=== PATIENT | female | born 1970 | race Caucasian/White ===

== ENCOUNTER 2017-12-09 09:26 | Outpatient (CLI) | payer MEDICAID | END 2017-12-09 09:27 | disposition critical access hospital (66) | LOC: EMS 09:26 | PROVIDERS: ATTEND Surgery | DX: R10.32 Left lower quadrant pain (principal); M54.5 Low back pain | CPT/HCPCS: A0425; A0427; A0999 ==

== ENCOUNTER 2017-12-09 09:50 | Emergency (ER) | payer MEDICAID ==
[2017-12-09] MEDS ORDERED: SODIUM CHLORIDE 0.9% 1,000 ML IV ONE (09:53)
[2017-12-09] MEDS ORDERED: KETOROLAC 60 MG/2 ML VIAL IVP STA (09:53)
--- NOTE | 2017-12-09 09:56 | ED Physician Documentation ---
History of Present Illness - Stated complaint Stated Complaint: LLQ PX - Additonal information Additional information: hx from pt 47 f visiting locally from [place] pmhx cushings s/p pituitary removal pshx abd - lesley developed L flank pain yesterday, awoke this AM worse and rad to LLQ NV no fever no hematuria Review of Systems Constitutional: denies: Fever Cardiac: denies: Chest pain / pressure Respiratory: denies: Dyspnea GI: reports: Abdominal Pain (LLQ) : denies: Hematuria, Now EGA (denies) Musculoskeletal: reports: Back pain Endocrine: denies: Easy bruising / bleeding Immunocompromised: denies: Immunocompromised PD PAST MEDICAL HISTORY - Present Medications Home Medications: Ambulatory Orders Medication Instructions Recorded Confirmed Cephalexin [Keflex] 500 mg PO Q6H #40 capsule 12/09/17 Ibuprofen [Motrin] 400 mg PO Q6H PRN #30 tablet 12/09/17 oxyCODONE [Roxicodone] 5 mg PO Q6H PRN #10 tablet 12/09/17 - Allergies Allergies/Adverse Reactions: Allergies Allergy/AdvReac Type Severity Reaction Status Date / Time acetaminophen Allergy Anaphylaxis Verified 12/09/17 10:05 [From Darvocet-N] propoxyphene Allergy Anaphylaxis Verified 12/09/17 10:05 [From Darvocet-N] PD ED PE NORMAL - Vitals Vital signs reviewed: Yes - Neck Neck: Supple, no meningeal sign - Cardiac Cardiac: RRR - Respiratory Respiratory: No respiratory distress, Clear bilaterally - Abdomen Abdomen: Soft, Other (TTP LLQ no peritoneal) - Back Back: No: No CVA TTP (+ L CVA TTP) - Derm Derm: Normal color - Neuro Neuro: Alert and oriented X 3 Results - Vitals Vitals: Vital Signs - 24 hr 12/09/17 12/09/17 12/09/17 10:01 10:55 13:26 Temperature 35.6 C L Heart Rate 83 67 64 Respiratory 16 20 20 Rate Blood Pressure 121/93 H 134/94 H 134/114 H O2 Saturation 98 100 100 Oxygen O2 Source Room air - Labs Labs: Laboratory Tests 12/09/17 12/09/17 12/09/17 10:05 10:05 11:13 WBC 8.3 RBC 4.40 Hgb 15.1 Hct 42.5 MCV 96.5 MCH 34.2 H MCHC 35.5 RDW 12.5 Plt Count 189 MPV 9.0 Neut # (Auto) 3.3 Lymph # (Auto) 4.1 H [place] # (Auto) 0.6 Eos # (Auto) 0.3 Baso # (Auto) 0.1 Absolute Nucleated RBC 0.01 Nucleated RBC % 0.1 Sodium 138 Potassium 3.4 L Chloride 105 Carbon Dioxide 23 Anion Gap 10.0 BUN 12 Creatinine 0.8 Estimated GFR (MDRD) 76 L Glucose 129 H Calcium 9.5 Total Bilirubin 1.2 H AST 76 H ALT 80 H Alkaline Phosphatase 85 Total Protein 8.0 Albumin 4.6 Globulin 3.4 Albumin/Globulin Ratio 1.4 Lipase 29 Urine Color YELLOW Urine Clarity CLEAR Urine pH 5.5 Ur Specific [place] 1.025 Urine Protein NEGATIVE Urine Glucose (UA) NEGATIVE Urine Ketones NEGATIVE Urine Occult Blood NEGATIVE Urine Nitrite NEGATIVE Urine Bilirubin NEGATIVE Urine Urobilinogen 0.2 (NORMAL) Ur Leukocyte Esterase MODERATE H Urine RBC 0-5 Urine WBC 11-25 H Ur Squamous Epith Cells FEW Squamous Urine Bacteria Few Urine Casts 0-2 Hyaline Casts Urine Mucus Few Strands Ur Microscopic Review INDICATED Urine Culture Comments INDICATED Urine HCG, Qual NEGATIVE - Rads (name of study) CT AP stone study Radiology: See rad report (no acute process no kindye/ureteral stone, fatty liver, fibroids) PD MEDICAL DECISION MAKING - ED course ED course: pt pain is severe and colicky so suspected stone but CT neg for stone looks like pyelo will give rocephin and dc on keflex and pain / nausea meds MSE performed infection identified - pyelo no life limb vision threatening infection or injury identified feel pt stable and safe for dc - Sepsis Event Vital Signs: Vital Signs - 24 hr 12/09/17 12/09/17 12/09/17 10:01 10:55 13:26 Temperature 35.6 C L Heart Rate 83 67 64 Respiratory 16 20 20 Rate Blood Pressure 121/93 H 134/94 H 134/114 H O2 Saturation 98 100 100 Oxygen O2 Source Room air Departure - Departure Disposition: 01 Home, Self Care Clinical Impression: Pyelonephritis Condition: Good Instructions: ED Kidney Infec Female Prescriptions: Cephalexin [Keflex] 500 mg PO Q6H #40 capsule Ibuprofen [Motrin] 400 mg PO Q6H PRN #30 tablet PRN Reason: Pain oxyCODONE [Roxicodone] 5 mg PO Q6H PRN #10 tablet PRN Reason: Severe Pain Comments: The CT does not show a kidney stone It looks like the pain is due to a kidney infection. We gave you IV antibiotics as well and pain medications and fluids in the ER At this time, the infection can be managed as an outpatient. Take the antibiotics as prescribed Take motrin and for mild to moderate pain Only take the oxycodone (which is a narcotic) if absolutely necessary for severe pain not relieved by motrin Your labs also were notable for some elevated liver tests and the CT scan showed a fatty liver - you should follow up with your PMD about these findings - and avoid tylenol and alcohol both of which can worsen liver problems And the radiologist noted that you have fibroid in your uterus - this is not related to your symptoms today, is likely not a new thing, does not need any treatment right now - but follow up with your [employer] when you get home to [place] Discharge Date/Time: 12/09/17 13:28
[2017-12-09 10:31] LABS: BASOPHILS # (AUTO) 0.1 10^3/uL (0.0-0.1); EOSINOPHILS # (AUTO) 0.3 10^3/uL (0.0-0.7); EOSINOPHILS % (AUTO) 3.4 %; HGB - HEMOGLOBIN 15.1 g/dL (12.0-16.0); LYMPHOCYTES # (AUTO) 4.1 10^3/uL (1.5-3.5); MEAN CORPUSCULAR HEMOGLOBIN 34.2 pg (27.0-31.0); MEAN CORPUSCULAR HGB CONC 35.5 g/dL (32.0-36.0); MEAN CORPUSCULAR VOLUME 96.5 fL (81.0-99.0); MONOCYTES # (AUTO) 0.6 10^3/uL (0.0-1.0); MONOCYTES % (AUTO) 6.8 %; NEUTROPHILS # (AUTO) 3.3 10^3/uL (1.5-6.6); NEUTROPHILS % (AUTO) 39.8 %; PLT - PLATELET COUNT 189 10^3/uL (130-450); RED CELL DISTRIBUTION WIDTH 12.5 % (12.0-15.0); WHITE BLOOD COUNT 8.3 x10^3/uL (4.8-10.8)
[2017-12-09 10:41] LABS: ALBUMIN 4.6 g/dL (3.2-5.5); ALBUMIN/GLOBULIN RATIO 1.4 (1.0-2.2); BILIRUBIN,TOTAL 1.2 mg/dL (0.2-1.0); CALCIUM 9.5 mg/dL (8.5-10.3); CREATININE 0.8 mg/dL (0.4-1.0)
[2017-12-09] MEDS ORDERED: MORPHINE 2 MG/ML SYRINGE IVP STA (11:00)
[2017-12-09 11:25] LABS: GLUCOSE, URINE (UA) NEGATIVE (NEGATIVE); KETONES,URINE (UA) NEGATIVE (NEGATIVE); LEUKOCYTE ESTERASE, URINE MODERATE (NEGATIVE); NITRITE,URINE NEGATIVE (NEGATIVE); OCCULT BLOOD,URINE NEGATIVE (NEGATIVE); PH,URINE 5.5 PH (5.0-7.5); PROTEIN,URINE NEGATIVE (NEGATIVE); UROBILINOGEN,URINE 0.2 (NORMAL) E.U./dL (NORMAL)
[2017-12-09 11:27] LABS: BILIRUBIN,URINE NEGATIVE (NEGATIVE); CLARITY,URINE CLEAR (CLEAR); HCG UR QUAL NEGATIVE
[2017-12-09 11:34] LABS: BACTERIA,URINE Few /HPF (None Seen); CASTS, URINE 0-2 Hyaline Casts /LPF; MUCUS,URINE Few Strands; RBC,URINE 0-5 /HPF (0-5); SQUAMOUS EPITHELIAL CELL,UR FEW Squamous (<= Few)
--- NOTE | 2017-12-09 12:29 | CT Report ---
Procedure Date: 12/09/2017 Accession Number: [id number] / [id number] Procedure: CT - Abdomen/Pelvis W/O CPT Code: FULL RESULT: EXAM: CT ABDOMEN AND PELVIS EXAM DATE: 12/09/2017 12:00 PM. CLINICAL HISTORY: Calculus of kidney. Left flank pain. COMPARISONS: None. TECHNIQUE: Routine helical CT imaging was performed through the abdomen and pelvis. IV contrast: No. Enteric contrast: No. Reconstructions: Coronal and sagittal. In accordance with CT protocol optimization, one or more of the following dose reduction techniques were utilized for this exam: automated exposure control, adjustment of mA and/or KV based on patient size, or use of iterative reconstructive technique. FINDINGS: Lung Bases: Unremarkable. Right kidney: No nephrolithiasis, hydronephrosis , or contour deformity is demonstrated. Left kidney: No nephrolithiasis, hydronephrosis, or contour deformity is demonstrated. Solid organs noncontrast imaging of the remainder solid organs demonstrates no acute findings. There is no organomegaly. Fatty change of the liver is suggested. Gallbladder/Bile Ducts: Cholecystectomy changes are seen. There is no biliary dilation. Peritoneal Cavity/Bowel: Normal. No free fluid, free air or adenopathy. No masses or acute inflammatory process. The appendix is well visualized and normal. Pelvic Organs: Small subserosal nodules in the uterus suggesting small fibroids are seen. The bladder and visualized pelvic organs are otherwise within normal limits. Vasculature: No aneurysms or other significant abnormality. Bones: Diffuse degenerative and scoliotic changes are seen in the spine. No acute osseous abnormality is demonstrated. Other: None. IMPRESSION: 1. No acute intra-abdominal abnormality demonstrated including no nephrolithiasis or hydronephrosis. 2. Mild scoliosis and degenerative spondylosis changes of the lumbar spine seen. 3. Fatty liver. 4. Normal sized fibroid uterus. RAD[facility]
[2017-12-09] MEDS ORDERED: cefTRIAXone 1 GM in SODIUM CHLORIDE 0.9% MINIBAG 100 ML IV STA (12:34)
[2017-12-09 13:28] VITALS: BP 134/114
== END 2017-12-09 13:28 | disposition home or self-care (01) ==
LOC: EDUNIT# → ED 09:50
DX: N12 Tubulo-interstitial nephritis, not specified as acute or chronic (principal); K76.0 Fatty (change of) liver, not elsewhere classified; D25.9 Leiomyoma of uterus, unspecified
CPT/HCPCS: 74176; 80053; 81001; 81025; 83690; 85025; 87086; 96361; 96365; 96375; 99283; J2270; 36415; 81003

== ENCOUNTER 2023-08-24 07:00 | Outpatient (CLI) | payer MEDICARE ==
[2023-08-24 20:05] LABS: BILIRUBIN,URINE NEGATIVE (NEGATIVE); GLUCOSE, URINE (UA) NEGATIVE (NEGATIVE); KETONES,URINE (UA) NEGATIVE (NEGATIVE); LEUKOCYTE ESTERASE, URINE SMALL (NEGATIVE); NITRITE,URINE NEGATIVE (NEGATIVE); OCCULT BLOOD,URINE NEGATIVE (NEGATIVE); PH,URINE 5.5 PH (5.0-7.5); PROTEIN,URINE NEGATIVE (NEGATIVE); UROBILINOGEN,URINE 0.2 (NORMAL) E.U./dL (NORMAL)
[2023-08-24 20:20] LABS: BACTERIA,URINE Rare /HPF (None Seen); CLARITY,URINE CLEAR (CLEAR); RBC,URINE 0-5 /HPF (0-5); SQUAMOUS EPITHELIAL CELL,UR RARE Squamous (<= Few)
== END 2023-08-24 23:59 | disposition home or self-care (01) ==
LOC: LAB.S 07:00
PROVIDERS: ATTEND Physician Assistant Medical
DX: M54.9 Dorsalgia, unspecified (principal)
CPT/HCPCS: 81001; 87086

== ENCOUNTER 2023-11-16 08:36 | Outpatient (CLI) | payer MEDICARE ==
[2023-11-16 14:21] LABS: BASOPHILS # (AUTO) 0.1 10^3/uL (0.0-0.1); EOSINOPHILS # (AUTO) 0.1 10^3/uL (0.0-0.7); EOSINOPHILS % (AUTO) 2.2 %; HGB - HEMOGLOBIN 12.6 g/dL (12.0-16.0); LYMPHOCYTES # (AUTO) 3.4 10^3/uL (1.5-3.5); LYMPHOCYTES % (AUTO) 58.1 %; MEAN CORPUSCULAR HEMOGLOBIN 31.7 pg (27.0-31.0); MEAN CORPUSCULAR HGB CONC 34.1 g/dL (32.0-36.0); MEAN CORPUSCULAR VOLUME 93.2 fL (81.0-99.0); MEAN PLATELET VOLUME 10.7 fL (7.9-10.8); MONOCYTES # (AUTO) 0.3 10^3/uL (0.0-1.0); MONOCYTES % (AUTO) 5.7 %; NEUTROPHILS # (AUTO) 1.9 10^3/uL (1.5-6.6); NEUTROPHILS % (AUTO) 32.8 %; PLT - PLATELET COUNT 167 10^3/uL (130-450); RED BLOOD COUNT 3.97 10^6/uL (4.20-5.40); RED CELL DISTRIBUTION WIDTH 11.7 % (12.0-15.0); WHITE BLOOD COUNT 5.8 x10^3/uL (4.8-10.8)
[2023-11-16 14:56] LABS: ALBUMIN 4.5 g/dL (3.2-5.5); ALBUMIN/GLOBULIN RATIO 1.6 (1.0-2.2); ALKALINE PHOSPHATASE 56 IU/L (42-121); ALT ALANINE AMINOTRANSFERASE 28 IU/L (10-60); AST ASPARTATE AMINOTRANSFERASE 25 IU/L (10-42); BILIRUBIN,TOTAL 0.4 mg/dL (0.2-1.0); BUN - BLOOD UREA NITROGEN 18 mg/dL (6-20); CALCIUM 9.6 mg/dL (8.5-10.3); CARBON DIOXIDE - CO2 28 mmol/L (21-32); CHLORIDE 103 mmol/L (101-111); CHOL/HDL RATIO 4.1 (<4.4); CHOLESTEROL 186 mg/dL; GFR - MDRD 58 (>89); GLUCOSE 80 mg/dL (74-104); HDL CHOLESTEROL 45 mg/dL; LDL CHOLESTEROL,CALCULATED 113 mg/dL; LDL/HDL RATIO 2.5 (<4.4); POTASSIUM 4.4 mmol/L (3.5-4.5); SODIUM 135 mmol/L (135-145); TOTAL PROTEIN 7.3 g/dL (6.4-8.9); TRIGLYCERIDES 139 mg/dL (48-352); VLDL CHOLESTEROL 28 mg/dL
[2023-11-16 15:05] LABS: THYROID STIMULATING HORMONE 0.99 uIU/mL (0.34-5.60)
[2023-11-16 20:15] LABS: ESTIMATED AVERAGE GLUCOSE 103 mg/dL (70-100); HEMOGLOBIN A1c% 5.2 % (4.27-6.07)
== END 2023-11-16 08:37 | disposition home or self-care (01) ==
LOC: LAB.S 08:36
PROVIDERS: ATTEND Registered Nurse
DX: E03.9 Hypothyroidism, unspecified (principal); Z13.9 Encounter for screening, unspecified; E23.0 Hypopituitarism
CPT/HCPCS: 36415; 80053; 80061; 83036; 83721; 84443; 85025